=== PATIENT | female | born 1995 | race Caucasian/White ===

== ENCOUNTER 2016-07-08 20:18 | Emergency (ER) | payer OTHER ==
--- NOTE | 2016-07-08 21:30 | ED NURSING NOTES ---
Clinical Report - Nurses [facility] [address] [place] [address] 07/08/2016 20:19 Patient: MIESHA WHITTEN TRIAGE Triage time 20:59 Jul 08 2016. Acuity: LEVEL 4. Chief Complaint: HEADACHE and MIGRAINE HEADACHE. ( Last period +1 week). --21:01 Marc Soriano R.N. 20:59 07/08/16. BP: 117/89. HR: 83. RR: 18. O2 saturation: 100%. Temp: 98.9 F. Pain level now 8/10. --21:01 Marc Soriano R.N. Weight: 65.7 kg stated. Height/Length: 66 inches. BMI: 23.4. --21:00 Marc Soriano R.N. Medications None. --20:59 Marc Soriano R.N. Allergies Codeine. (nausea) PredniSONE. Definite Moderate(anxiety) --20:59 Marc Soriano R.N. Toradol. --21:00 Marc Soriano R.N. History This started today. SOCIAL HX: Light tobacco smoker. No alcohol use or drug use. --21:01 Marc Soriano R.N. PROBLEMS: Abdominal Pain. Muscle Spasm. Immunizations. LNMP - Last Normal Menstrual Period. Cervical Strain. Contusion. --21:00 Marc Soriano R.N. Interventions ID and allergy band on patient. To treatment room. --21:01 Marc Soriano R.N. PHYSICAL ASSESSMENT GENERAL / NEURO / PSYCH: Alert. Oriented X 4. No decreased awareness. [place] Coma Scale. (15). No numbness. HEENT: No facial asymmetry noted. Pupils equal, round and reactive to light. RESPIRATORY: Respirations not labored. GI / : The patient has had nausea. Emesis noted. --21:02 Marc Soriano R.N. NURSING PROGRESS NOTES Patient gowned. Reassurance given. Lights dimmed. Two patient identifiers checked. Side rails up x 1. Bed placed in lowest position. Care transferred and report given. --21:02 Marc Soriano R.N. 21:24 07/08/2016 Zofran ODT (Ondansetron) PO Oral Disintegrating Tablets 4 mg given. Allergies verified and confirmed 5 rights. --21:24 Merritt Brown R.N. 21:24 07/08/2016 Hydrocodone-APAP (Hydrocodone-Acetaminophen) PO 5/325 mg Tablets 1 tab given. Allergies verified, confirmed 5 rights and sedative warning given to the patient. --21:24 Merritt Brown R.N. DISPOSITION / DISCHARGE Departure time: 2142. Condition at departure: improved. No learning barriers present. Discharge instructions provided and reviewed with the patient. Reviewed medication(s) side effects information. Prescription(s) given to the patient. Patient and family verbalized understanding. Written instructions provided in [place]. The patient was discharged by the nurse practitioner. ( Pt ambulated on discharge steady on her feet, pt verbalized understanding of discharge instructions and follow up care.). --21:46 Marc Soriano R.N. 21:45 07/08/16. BP: 108/57. HR: 98. RR: 18. O2 saturation: 97%. Temp: 97.8 F. --21:46 Marc Soriano R.N. 21:46 07/08/16. Pain level now 4/10. --21:47 Marc Soriano R.N. Locked/Released at 07/09/2016 2:46 by Marc Soriano R.N.
--- NOTE | 2016-07-08 21:30 | ED CLINICAL REPORT ---
Clinical Report - Physicians/Mid Levels [facility] [address] [place] [address] 07/08/2016 20:19 Patient: MIESHA WHITTEN Time Seen: 20:56; initial patient contact, initial documentation, patient care assumed. Arrived- By private vehicle. Historian- patient and family. HISTORY OF PRESENT ILLNESS Chief Complaint: HEADACHE and MIGRAINE HEADACHE. Is still present. This started about 2 months ago. It is described as "pain" and diffuse. No neck pain. Located in the facial region. At its maximum, severity described as severe. When seen in the E.D., severity described as severe. Modifying factors: relieved by nothing. Not worsened by anything. The patient has had nausea. No preceding symptoms, blurred vision, photophobia, numbness or weakness. No vomiting. No recent travel. Recent medical care: Not recently seen/assessed. REVIEW OF SYSTEMS No fever, muscle aches, head injury, chest pain or difficulty breathing. She has had sinus pressure, ear pain and a sore throat and cough. came down with cold around xmas time, better now. All systems otherwise negative, except as recorded above. PAST HISTORY See nurses notes. PROBLEMS: Abdominal Pain. Muscle Spasm. Immunizations. LNMP - Last Normal Menstrual Period. Cervical Strain. Contusion. --21:00 Marc Soriano, Miguel. SOCIAL HISTORY Light tobacco smoker. No alcohol use or drug use. No recent travel. Is a local resident. FAMILY HISTORY Negative. ADDITIONAL NOTES The nursing notes have been reviewed with agreement regarding the chief complaint, HPI, ROS, PMH and patient medications and allergies. PHYSICAL EXAM Vital Signs: 07/08/2016 20:59 BP: 117/89. HR: 83. RR: 18. O2 saturation: 100%. Temp: 98.9 F. Have been reviewed as normal and appear to be correct. Appearance: Alert. No acute distress. Head: Tenderness present to percussion/palpation of the sinuses: moderate right and left frontal tenderness, maxillary tenderness, ethmoid tenderness. Eyes: Pupils equal, round and reactive to light. Eyes normal inspection. ENT: Ears not normal. Abnormal ear exam. Right Ear: there is a diffuse light reflex. Left Ear: there is bulging of the TM. Nose abnormal. Pharynx normal. Neck: Normal inspection. Neck supple. CVS: Normal heart rate and rhythm. Heart sounds normal. Pulses normal. Respiratory: No respiratory distress. Breath sounds normal. Abdomen: Soft and nontender. No organomegaly. Back: Normal inspection. Skin: Skin warm and dry. Normal skin color. No rash. Normal skin turgor. Extremities: Extremities exhibit normal ROM. No lower extremity edema. Neuro: Oriented X 3. Alert. Mood/affect normal. Speech normal. Cranial nerves normal (as tested). No cerebellar findings. No motor deficit. No sensory deficit. PROGRESS AND PROCEDURES Course of Care: tx options discussed, including ct allergies verified, pt stated she could not take toradol because it lowered her bp, headache cocktail order was cancelled, pt did state she could take other nsaids, and takes motrin and alleve without issues. Patient and family counseled in person regarding the patient's stable condition and diagnosis. 21:30. Differential Diagnosis: I considered migraine, cluster headache, subarachnoid hemorrhage, intracranial bleed, brain abscess, sinusitis, influenza, viral syndrome and analgesic abuse as a possible cause of headache in this patient. This is a partial list of diagnoses considered. Above considerations are based on history and physical exam. Differential diagnosis was discussed with patient and patient's family. Disposition: Discharged home in good and improved condition (21:30). Condition: good and stable. CLINICAL IMPRESSION Acute maxillary, ethmoidal and frontal sinusitis Episodic, poorly controlled headache. INSTRUCTIONS Do not work today, tomorrow. Warnings: GENERAL WARNINGS: Return or contact your physician immediately if your condition worsens or changes unexpectedly, if not improving as expected, or if other problems arise. SPECIFICALLY, return if you develop numbness, weakness, difficulty thinking, visual disturbances, fainting or extreme fatigue. Prescription Medications: Zofran 4 mg: Take 1 orally every six hours as needed for nausea/vomiting. Dispense ten (10). No refills. Substitution is permissible. Augmentin 875 mg: take 1 tablet orally every 12 hours for 10 days. No refill. Fioricet: Take 1-2 orally every 4 hours as needed for headache. Dispense twenty (20). No refills. Substitution is permissible. Follow-up: Follow up with your doctor in about three days even if well. Call for an appointment. Summary of care provided to patient. Understanding of the discharge instructions verbalized by patient. (Electronically signed by Erin Sifuentes A.R.N.P. 07/08/2016 21:52)
--- NOTE | 2016-07-08 21:30 | ED NURSING NOTES ---
Clinical Report - Nurses [facility] [address] [place] [address] 07/08/2016 20:19 Patient: MIESHA WHITTEN TRIAGE Triage time 20:59 Jul 08 2016. Acuity: LEVEL 4. Chief Complaint: HEADACHE and MIGRAINE HEADACHE. ( Last period +1 week). --21:01 Marc Soriano R.N. 20:59 07/08/16. BP: 117/89. HR: 83. RR: 18. O2 saturation: 100%. Temp: 98.9 F. Pain level now 8/10. --21:01 Marc Soriano R.N. Weight: 65.7 kg stated. Height/Length: 66 inches. BMI: 23.4. --21:00 Marc Soriano R.N. Medications None. --20:59 Marc Soriano R.N. Allergies Codeine. (nausea) PredniSONE. Definite Moderate(anxiety) --20:59 Marc Soriano R.N. Toradol. --21:00 Marc Soriano R.N. History This started today. SOCIAL HX: Light tobacco smoker. No alcohol use or drug use. --21:01 Marc Soriano R.N. PROBLEMS: Abdominal Pain. Muscle Spasm. Immunizations. LNMP - Last Normal Menstrual Period. Cervical Strain. Contusion. --21:00 Marc Soriano R.N. Interventions ID and allergy band on patient. To treatment room. --21:01 Marc Soriano R.N. PHYSICAL ASSESSMENT GENERAL / NEURO / PSYCH: Alert. Oriented X 4. No decreased awareness. [place] Coma Scale. (15). No numbness. HEENT: No facial asymmetry noted. Pupils equal, round and reactive to light. RESPIRATORY: Respirations not labored. GI / : The patient has had nausea. Emesis noted. --21:02 Marc Soriano R.N. NURSING PROGRESS NOTES Patient gowned. Reassurance given. Lights dimmed. Two patient identifiers checked. Side rails up x 1. Bed placed in lowest position. Care transferred and report given. --21:02 Marc Soriano R.N. 21:24 07/08/2016 Zofran ODT (Ondansetron) PO Oral Disintegrating Tablets 4 mg given. Allergies verified and confirmed 5 rights. --21:24 Merritt Brown R.N. 21:24 07/08/2016 Hydrocodone-APAP (Hydrocodone-Acetaminophen) PO 5/325 mg Tablets 1 tab given. Allergies verified, confirmed 5 rights and sedative warning given to the patient. --21:24 Merritt Brown R.N. DISPOSITION / DISCHARGE Departure time: 2142. Condition at departure: improved. No learning barriers present. Discharge instructions provided and reviewed with the patient. Reviewed medication(s) side effects information. Prescription(s) given to the patient. Patient and family verbalized understanding. Written instructions provided in [place]. The patient was discharged by the nurse practitioner. ( Pt ambulated on discharge steady on her feet, pt verbalized understanding of discharge instructions and follow up care.). --21:46 Marc Soriano R.N. 21:45 07/08/16. BP: 108/57. HR: 98. RR: 18. O2 saturation: 97%. Temp: 97.8 F. --21:46 Marc Soriano R.N. 21:46 07/08/16. Pain level now 4/10. --21:47 Marc Soriano R.N. Locked/Released at 07/09/2016 2:46 by Marc Soriano R.N.
--- NOTE | 2016-07-08 21:30 | ED ORDER SUMMARY ---
..... Patient: MIESHA WHITTEN OrderSheet [facility] VisitID: [id number] [place] [address] 21y, F Registration Date/Time: 07/08/2016 ORDER SHEET Weight: 65.7 kg (stated) Allergies: Codeine, PredniSONE, Toradol GENERAL ORDERS: MEDICATION ORDERS: Zofran ODT PO 4 mg (NOW) (21:21 07/08/2016 HBivens A.R.N.P.) (Ack 21:22 EInderbitzen R.N.) (Ack 21:23 HSoule) (21:24 JDeElena R.N.) Hydrocodone-APAP PO 5/325 mg (NOW, HIGH ALERT MEDICATION) (21:22 07/08/2016 HBivens A.R.N.P.) (Ack 21:23 HSoule) (21:24 JDeElena R.N.) IV FLUIDS: ORDER SHEET NOTES: [Electronically signed by Erin Sifuentes A.R.N.P. (21:52 07/08/2016)] [Electronically signed by Marc Soriano R.N. (02:46 07/09/2016)] [Electronically locked/signed by Marc Soriano R.N. (02:46 07/09/2016)]
--- NOTE | 2016-07-08 21:30 | ED ORDER SUMMARY ---
..... Patient: MIESHA WHITTEN OrderSheet [facility] VisitID: [id number] [place] [address] 21y, F Registration Date/Time: 07/08/2016 ORDER SHEET Weight: 65.7 kg (stated) Allergies: Codeine, PredniSONE, Toradol GENERAL ORDERS: MEDICATION ORDERS: Zofran ODT PO 4 mg (NOW) (21:21 07/08/2016 HBivens A.R.N.P.) (Ack 21:22 EInderbitzen R.N.) (Ack 21:23 HSoule) (21:24 JDeElena R.N.) Hydrocodone-APAP PO 5/325 mg (NOW, HIGH ALERT MEDICATION) (21:22 07/08/2016 HBivens A.R.N.P.) (Ack 21:23 HSoule) (21:24 JDeElena R.N.) IV FLUIDS: ORDER SHEET NOTES: [Electronically signed by Erin Sifuentes A.R.N.P. (21:52 07/08/2016)] [Electronically signed by Marc Soriano R.N. (02:46 07/09/2016)] [Electronically locked/signed by Marc Soriano R.N. (02:46 07/09/2016)]
--- NOTE | 2016-07-09 02:46 | ED MED RECONCILIATION SUMMARY ---
Patient: MIESHA WHITTEN Medication Reconciliation Report [facility] VisitID: [id number] [place] [address] 21y, F Registration Date/Time: 07/08/2016 Weight: 65.7 kg Height/Length: 66 in. BMI: 23.4 ALLERGIES: Codeine, PredniSONE, Toradol The patient's Home Medications are listed below: NONE. The source(s) of the original Home Medication information: Not obtained. The following Medications were given to the patient in the Emergency Department: Zofran ODT [PO] PO 4 mg, administered: 07/08/2016 9:24:00 PM Hydrocodone-APAP [PO] PO 1 tab, administered: 07/08/2016 9:24:00 PM The following Medications were prescribed to the patient: Zofran 4 mg: Take 1 orally every six hours as needed for nausea/vomiting. Dispense ten (10). No refills. Substitution is permissible. -- Erin Sifuentes, A.R.N.P. Augmentin 875 mg: take 1 tablet orally every 12 hours for 10 days. No refill. -- Erin Sifuentes, A.R.N.P. Fioricet: Take 1-2 orally every 4 hours as needed for headache. Dispense twenty (20). No refills. Substitution is permissible. -- Erin Sifuentes A.R.N.P.
--- NOTE | 2016-07-09 02:46 | ED MAR SUMMARY ---
..... Medication Administration Record [facility] [address] [place] [address] Patient: MIESHA WHITTEN Visit ID: [id number] 21y, F Weight: 65.7 kg Height/Length: 66 in BMI: 23.4 ALLERGIES: Toradol, Codeine, PredniSONE Given 21:07/08/2016 Merritt Brown, R.N. Medication Administered: ZOFRAN ODT [PO] (ONDANSETRON), Dose: 4 mg Oral Disintegrating Tablets PO. Medication Ordered: Zofran ODT PO 4 mg (NOW). Given 21:07/08/2016 Merritt Brown, R.N. Medication Administered: HYDROCODONE-APAP [PO] (HYDROCODONE-ACETAMINOPHEN), Dose: 1 tab 5/325 mg Tablets PO. Medication Ordered: Hydrocodone-APAP PO 5/325 mg (NOW, HIGH ALERT MEDICATION).
--- NOTE | 2016-07-09 02:46 | ED DISCHARGE INSTRUCTIONS ---
Patient: MIESHA WHITTEN General Instructions [facility] VisitID: [id number] [place] [address] 21y, F Registration Date/Time: 07/08/2016 Acute maxillary, ethmoidal and frontal sinusitis Episodic, poorly controlled headache. INSTRUCTIONS Do not work today, tomorrow. Warnings: GENERAL WARNINGS: Return or contact your physician immediately if your condition worsens or changes unexpectedly, if not improving as expected, or if other problems arise. SPECIFICALLY, return if you develop numbness, weakness, difficulty thinking, visual disturbances, fainting or extreme fatigue. Prescription Medications: Zofran 4 mg: Take 1 orally every six hours as needed for nausea/vomiting. Dispense ten (10). No refills. Substitution is permissible. Augmentin 875 mg: take 1 tablet orally every 12 hours for 10 days. No refill. Fioricet: Take 1-2 orally every 4 hours as needed for headache. Dispense twenty (20). No refills. Substitution is permissible. Follow-up: Follow up with your doctor in about three days even if well. Call for an appointment. Summary of care provided to patient. Understanding of the discharge instructions verbalized by patient. ADDITIONAL INFORMATION Headache [Unspecified] The cause of your headache today is not clear, but it does not appear to be the sign of any serious illness. Under stress, some people tense the muscles of their shoulder, neck and scalp without knowing it. If this condition lasts long enough, a TENSION HEADACHE can occur. A MIGRAINE HEADACHE is caused by changes in blood flow to the brain. A migraine attack may be triggered by emotional stress, hormone changes during the menstrual cycle, oral contraceptives, alcohol use, certain foods containing tyramine, eye strain, weather changes, missing meals, lack of sleep or oversleeping. Other causes of headache include a viral illness with high fever, head injury with concussion, sinus, ear or throat infection, dental pain and TMJ (jaw joint) pain. More serious but less common causes of headache include stroke, brain hemorrhage, brain tumor, meningitis and encephalitis. Home Care: If you were given pain medicine for this headache, do not drive yourself home. Arrange for a ride, instead. When you get home, try to sleep. You should feel much better when you wake up. Apply heat to the back of your neck to relieve neck muscle spasm. Migraine headaches may respond best to an ice pack on the forehead or at the base of the skull. If you are having nausea or vomiting, follow a light diet until your headache is relieved. If you have a migraine type headache, use sunglasses when in the daylight or around bright indoor lighting until symptoms improve. Bright glaring light can worsen this kind of headache. Follow Up with your doctor if the headache is not better within the next 24 hours. If you have frequent headaches you should discuss a treatment plan with your primary care doctor. By being aware of the earliest signs of headache, and starting treatment right away, you may be able to stop the pain yourself. Get Prompt Medical Attention if any of the following occur: Worsening of your head pain or no improvement within 24 hours Repeated vomiting (unable to keep liquids down) Fever of 100.4F (38C) or higher, or as directed by your healthcare provider Stiff neck Extreme drowsiness, confusion or fainting Dizziness, vertigo (dizziness with spinning sensation) Weakness of an arm or leg or one side of the face Difficulty with speech or vision Sinusitis [Abx Tx] The sinuses are air-filled spaces within the bones of the face. They connect to the inside of the nose. Sinusitis is an inflammation of the tissue lining the sinus cavity. Sinus inflammation can occur during a cold or hay-fever (allergies to pollens and other particles in the air) and cause symptoms of sinus congestion and fullness. A sinus infection causes fever, headache and facial pain. There is usually green or yellow drainage from the nose or into the back of the throat (post-nasal drip). Antibiotics are prescribed to treat this condition. Home Care: Drink plenty of water, hot tea, and other liquids to stay well hydrated. This thins the mucus and promotes sinus drainage. Apply heat to the painful areas of the face. Use a towel soaked in hot water. Or, parts inspector the shower and direct the hot spray onto your face. This is a good way to inhale warm water vapor and get heat on your face at the same time. (Cover your mouth and nose with your hands so you can still breathe as you do this.) Use a vaporizer with products such as Yunno VapoRub (contains menthol) at night. Suck on peppermint, menthol or eucalyptus hard candies during the day. An expectorant containing guaifenesin (such as Robitussin), helps to thin the mucus and promote drainage from the sinuses. [id number] decongestants may be used unless a similar medicine was prescribed. Nasal sprays work the fastest. Use one that contains phenylephrine (Gael-synephrine, Sinex and others) or oxymetazoline (Afrin). First blow the nose gently to remove mucus, then apply the drops. Do not use these medicines more often than directed on the label or for more than three days or symptoms may worsen. You may also use tablets containing pseudoephedrine (Sudafed). Many sinus remedies combine ingredients, which may increase side effects. Read the labels or ask the pharmacist for help. NOTE: Persons with high blood pressure should not use decongestants. They can raise blood pressure. Antihistamines are useful if allergies are a cause of your sinusitis. The mildest one is chlorpheniramine (available without a prescription). The dose for adults is 8-12mg three times a day. [NOTE: Do not use chlorpheniramine if you have glaucoma or if you are a man with trouble urinating due to an enlarged prostate.] Claritin (loratidine) is an antihistamine that causes less drowsiness and is a good alternative for daytime use. Do not use nasal rinses or irrigation during an acute sinus infection, unless advised by your doctor. Rinsing may spread the infection to other sinuses. You may use acetaminophen (Tylenol) or ibuprofen (Motrin, Advil) to control pain, unless another pain medicine was prescribed. [ NOTE: If you have chronic liver or kidney disease or ever had a stomach ulcer, talk with your doctor before using these medicines.] (Aspirin should never be used in anyone under 18 years of age who is ill with a fever. It may cause severe liver damage.) Finish the full course, even if you are feeling better after a few days. Follow Up with your doctor or this facility in one week or as instructed by our staff if not improving. Get Prompt Medical Attention if any of the following occur: Facial pain or headache becomes more severe Stiff neck Unusual drowsiness or confusion, or not acting like your normal self Swelling of the forehead or eyelids Vision problems including blurred or double vision Fever of 100.4F (38C) or higher, or as directed by your healthcare provider Seizure Ondansetron Hydrochloride Oral tablet What is this medicine? ONDANSETRON (on ALLEN se santo) is used to treat nausea and vomiting caused by chemotherapy. It is also used to prevent or treat nausea and vomiting after surgery. How should I use this medicine? Take this medicine by mouth with a glass of water. Follow the directions on your prescription label. Take your doses at regular intervals. Do not take your medicine more often than directed. Talk to your cognos tm1 developer regarding the use of this medicine in children. Special care may be needed. What side effects may I notice from receiving this medicine? Side effects that you should report to your doctor or health healthcare educator as soon as possible: allergic reactions like skin rash, itching or hives, swelling of the face, lips or tongue breathing problems dizziness fast or irregular heartbeat feeling faint or lightheaded, falls fever and chills swelling of the hands or feet tightness in the chest Side effects that usually do not require medical attention (report to your doctor or health healthcare educator if they continue or are bothersome): constipation or diarrhea headache What may interact with this medicine? Do not take this medicine with any of the following medications: -apomorphine -cisapride -dofetilide -dronedarone -pimozide -thioridazine -ziprasidone This medicine may also interact with the following medications: -carbamazepine -phenytoin -rifampicin -tramadol -other medicines that prolong the QT interval (cause an abnormal heart rhythm) What if I miss a dose? If you miss a dose, take it as soon as you can. If it is almost time for your next dose, take only that dose. Do not take double or extra doses. Where should I keep my medicine? Keep out of the reach of children. Store between 2 and 30 degrees C (36 and 86 degrees F). Throw away any unused medicine after the expiration date. What should I tell my health care provider before I take this medicine? They need to know if you have any of these conditions: heart disease history of irregular heartbeat liver disease low levels of magnesium or potassium in the blood an unusual or allergic reaction to ondansetron, granisetron, other medicines, foods, dyes, or preservatives or trying to get breast-feeding What should I watch for while using this medicine? Check with your doctor or health healthcare educator right away if you have any sign of an allergic reaction. Amoxicillin Trihydrate, Clavulanate Potassium Oral tablet What is this medicine? AMOXICILLIN; CLAVULANIC ACID (a mox i JARON in; ALEX rueda isaura ic id) is a penicillin antibiotic. It is used to treat certain kinds of bacterial infections. It will not work for colds, flu, or other viral infections. How should I use this medicine? Take this medicine by mouth with a full glass of water. Follow the directions on the prescription label. Take at the start of a meal. Do not crush or chew. If the tablet has a score line, you may cut it in half at the score line for easier swallowing. Take your medicine at regular intervals. Do not take your medicine more often than directed. Take all of your medicine as directed even if you think you are better. Do not skip doses or stop your medicine early. Talk to your cognos tm1 developer regarding the use of this medicine in children. Special care may be needed. What side effects may I notice from receiving this medicine? Side effects that you should report to your doctor or health healthcare educator as soon as possible: allergic reactions like skin rash, itching or hives, swelling of the face, lips, or tongue breathing problems dark urine fever or chills, sore throat redness, blistering, peeling or loosening of the skin, including inside the mouth seizures trouble passing urine or change in the amount of urine unusual bleeding, bruising unusually weak or tired white patches or sores in the mouth or throat Side effects that usually do not require medical attention (report to your doctor or health healthcare educator if they continue or are bothersome): diarrhea dizziness headache nausea, vomiting stomach upset vaginal or anal irritation What may interact with this medicine? allopurinol anticoagulants control pills methotrexate probenecid What if I miss a dose? If you miss a dose, take it as soon as you can. If it is almost time for your next dose, take only that dose. Do not take double or extra doses. Where should I keep my medicine? Keep out of the reach of children. Store at room temperature below 25 degrees C (77 degrees F). Keep container tightly closed. Throw away any unused medicine after the expiration date. What should I tell my health care provider before I take this medicine? They need to know if you have any of these conditions: bowel disease, like colitis kidney disease liver disease mononucleosis an unusual or allergic reaction to amoxicillin, penicillin, cephalosporin, other antibiotics, clavulanic acid, other medicines, foods, dyes, or preservatives or trying to get breast-feeding What should I watch for while using this medicine? Tell your doctor or health healthcare educator if your symptoms do not improve. Do not treat diarrhea with over the counter products. Contact your doctor if you have diarrhea that lasts more than 2 days or if it is severe and watery. If you have diabetes, you may get a false-positive result for sugar in your urine. Check with your doctor or health healthcare educator. control pills may not work properly while you are taking this medicine. Talk to your doctor about using an extra method of control. Butalbital, Acetaminophen, Caffeine Oral tablet What is this medicine? ACETAMINOPHEN; BUTALBITAL; CAFFEINE (a set a DANY christo fen; byoo VANIA bi vania; KAF een) is a pain reliever. It is used to treat tension headaches. How should I use this medicine? Take this medicine by mouth with a full glass of water. Follow the directions on the prescription label. If the medicine upsets your stomach, take the medicine with food or milk. Do not take more than you are told to take. Talk to your cognos tm1 developer regarding the use of this medicine in children. Special care may be needed. What side effects may I notice from receiving this medicine? Side effects that you should report to your doctor or health healthcare educator as soon as possible: allergic reactions like skin rash, itching or hives, swelling of the face, lips, or tongue breathing problems confusion feeling faint or lightheaded, falls redness, blistering, peeling or loosening of the skin, including inside the mouth seizure stomach pain yellowing of the eyes or skin Side effects that usually do not require medical attention (report to your doctor or health healthcare educator if they continue or are bothersome): constipation nausea, vomiting What may interact with this medicine? alcohol or medicines that contain alcohol antidepressants, especially MAOIs like isocarboxazid, phenelzine, tranylcypromine, and selegiline antihistamines benzodiazepines carbamazepine isoniazid medicines for pain like pentazocine, buprenorphine, butorphanol, nalbuphine, tramadol, and propoxyphene muscle relaxants naltrexone phenobarbital, phenytoin, and fosphenytoin phenothiazines like perphenazine, thioridazine, chlorpromazine, mesoridazine, fluphenazine, prochlorperazine, promazine, and trifluoperazine voriconazole What if I miss a dose? If you miss a dose, take it as soon as you can. If it is almost time for your next dose, take only that dose. Do not take double or extra doses. Where should I keep my medicine? Keep out of the reach of children. This medicine can be abused. Keep your medicine in a safe place to protect it from theft. Do not share this medicine with anyone. Selling or giving away this medicine is dangerous and against the law. Store at room temperature between 15 and 30 degrees C (59 and 86 degrees F). Keep container tightly closed. Protect from light. Throw away any unused medicine after the expiration date. What should I tell my health care provider before I take this medicine? They need to know if you have any of these conditions: drink more than 3 alcohol-containing drinks per day drug abuse or addiction heart or circulation problems kidney disease or problems going to the bathroom liver disease lung disease, asthma, or breathing problems porphyria an unusual or allergic reaction to acetaminophen, butalbital or other barbiturates, caffeine, other medicines, foods, dyes, or preservatives or trying to get breast-feeding What should I watch for while using this medicine? Tell your doctor or health healthcare educator if your pain does not go away, if it gets worse, or if you have new or a different type of pain. You may develop tolerance to the medicine. Tolerance means that you will need a higher dose of the medicine for pain relief. Tolerance is normal and is expected if you take the medicine for a long time. Do not suddenly stop taking your medicine because you may develop a severe reaction. Your body becomes used to the medicine. This does NOT mean you are addicted. Addiction is a behavior related to getting and using a drug for a non-medical reason. If you have pain, you have a medical reason to take pain medicine. Your doctor will tell you how much medicine to take. If your doctor wants you to stop the medicine, the dose will be slowly lowered over time to avoid any side effects. You may get drowsy or dizzy when you first start taking the medicine or change doses. Do not drive, use machinery, or do anything that may be dangerous until you know how the medicine affects you. Stand or sit up slowly. Do not take other medicines that contain acetaminophen with this medicine. Always read labels carefully. If you have questions, ask your doctor or pharmacist. If you take too much acetaminophen get medical help right away. Too much acetaminophen can be very dangerous and cause liver damage. Even if you do not have symptoms, it is important to get help right away. You have been given the following additional information: Headache, Unspecified Sinusitis, Abx Tx Ondansetron Hydrochloride Oral tablet Amoxicillin Trihydrate, Clavulanate Potassium Oral tablet Butalbital, Acetaminophen, Caffeine Oral tablet Do not work today, tomorrow. (Electronically signed by Erin Sifuentes A.R.N.P. 07/08/2016 21:52)
--- NOTE | 2016-07-09 02:46 | ED MED RECONCILIATION SUMMARY ---
Patient: MIESHA WHITTEN Medication Reconciliation Report [facility] VisitID: [id number] [place] [address] 21y, F Registration Date/Time: 07/08/2016 Weight: 65.7 kg Height/Length: 66 in. BMI: 23.4 ALLERGIES: Codeine, PredniSONE, Toradol The patient's Home Medications are listed below: NONE. The source(s) of the original Home Medication information: Not obtained. The following Medications were given to the patient in the Emergency Department: Zofran ODT [PO] PO 4 mg, administered: 07/08/2016 9:24:00 PM Hydrocodone-APAP [PO] PO 1 tab, administered: 07/08/2016 9:24:00 PM The following Medications were prescribed to the patient: Zofran 4 mg: Take 1 orally every six hours as needed for nausea/vomiting. Dispense ten (10). No refills. Substitution is permissible. -- Erin Sifuentes, A.R.N.P. Augmentin 875 mg: take 1 tablet orally every 12 hours for 10 days. No refill. -- Erin Sifuentes, A.R.N.P. Fioricet: Take 1-2 orally every 4 hours as needed for headache. Dispense twenty (20). No refills. Substitution is permissible. -- Erin Sifuentes A.R.N.P.
--- NOTE | 2016-07-09 02:46 | ED MAR SUMMARY ---
..... Medication Administration Record [facility] [address] [place] [address] Patient: MIESHA WHITTEN Visit ID: [id number] 21y, F Weight: 65.7 kg Height/Length: 66 in BMI: 23.4 ALLERGIES: Toradol, Codeine, PredniSONE Given 21:07/08/2016 Merritt Brown, R.N. Medication Administered: ZOFRAN ODT [PO] (ONDANSETRON), Dose: 4 mg Oral Disintegrating Tablets PO. Medication Ordered: Zofran ODT PO 4 mg (NOW). Given 21:07/08/2016 Merritt Brown, R.N. Medication Administered: HYDROCODONE-APAP [PO] (HYDROCODONE-ACETAMINOPHEN), Dose: 1 tab 5/325 mg Tablets PO. Medication Ordered: Hydrocodone-APAP PO 5/325 mg (NOW, HIGH ALERT MEDICATION).
== END 2016-07-08 21:43 | disposition home or self-care (01) ==
LOC: ED SRH 20:18
DX: J01.00 Acute maxillary sinusitis, unspecified (principal); J01.20 Acute ethmoidal sinusitis, unspecified; J01.10 Acute frontal sinusitis, unspecified; R51 Headache; Z88.5 Allergy status to narcotic agent; Z88.8 Allergy status to other drugs, medicaments and biological substances; F17.200 Nicotine dependence, unspecified, uncomplicated